=== PATIENT | male | born 1970 | race Caucasian/White ===

== ENCOUNTER 2016-07-13 11:57 | Emergency (ER) | payer OTHER ==
[2016-07-13 12:17] VITALS: O2SAT 98
--- NOTE | 2016-07-13 12:53 | EDPHY ---
H & P Stated Complaint: hematuria, testicle pain x 2 days HPI/ROS: HPI CHIEF COMPLAINT: Hematuria, testicular pain HISTORY OF PRESENT ILLNESS: This patient very pleasant 45-year-old male, denies having any significant medical history presents to the emergency room with 2-3 days of suprapubic discomfort, urinary urgency, and some discomfort when he urinates and noticed 2 small bright red blood clots in his urine today. He denies back pain, fever, vomiting, sharp stabbing pain does admit to urinary urgency and suprapubic pressure. He also tells me that his scrotum "feels full" Past Medical History: No significant medical history Past Surgical History: No significant surgical history Social History: Denies daily use drugs alcohol tobacco products, works as a junior software engineer, lives locally Family History: Noncontributory ROS REVIEW OF SYSTEMS: A comprehensive 10 point review of systems is otherwise negative aside from elements mentioned in the history of present illness. Exam Constitutional triage nursing summary reviewed, vital signs reviewed, awake/ alert. Eyes normal conjunctivae and sclera, EOMI, PERRLA. HENT normal inspection, atraumatic, moist mucus membranes, no epistaxis, neck supple/ no meningismus, no raccoon eyes. Respiratory clear to auscultation bilaterally, normal breath sounds, no respiratory distress, no wheezing. Cardiovascular rate normal, regular rhythm, no murmur, no edema, distal pulses normal. Gastrointestinal soft, non-tender, no rebound, no guarding, normal bowel sounds, no distension, no pulsatile mass. Genitourinary no CVA tenderness. Musculoskeletal no midline vertebral tenderness, full range of motion, no calf swelling, no tenderness of extremities, no meningismus, good pulses, neurovascularly intact. Skin pink, warm, & dry, no rash, skin atraumatic. Neurologic awake, alert and oriented x 3, AAOx3, moves all 4 extremities equally, motor intact, sensory intact, CN II-XII intact, normal cerebellar, normal vision, normal speech. Psychiatric normal mood/affect. Heme/Lymph/Immune no lymphadenopathy. Differential Diagnosis: Includes but is not limited to in a particular order, UTI, cystitis, kidney stone, pyelonephritis, epididymitis, orchitis, testicular torsion Medical Decision Making: plan for this patient is to have an IV established, obtain blood work, urinalysis, receive fluid bolus and had a exam. May need ultrasound of scrotum. Re-evaluation: Ultrasound of the testicular. The results of the study are negative for anything acute I discussed the results of this study with the radiologist Dr. Blankenship Ultrasound of the bladder and kidneys. The results of the study are possible hydroureter. I discussed the results of this study with the radiologist Dr. Blankenship. CT scan of the abdomen pelvis without IV contrast The results of the study are possible right 4 mm distal ureteral stone. The study was read by Dr. Blankenship. I viewed the images myself on the PACS system. 1558: Reviewed this patient's CT scan with him. It is possible he has a distal right 4 mm ureteral stone however there is no significant hydro. He has gross hematuria. He will need to follow up with Urology. I explained this that he needs to follow up with Urology make an appointment for further evaluation of hematuria. On his CT scan I do not see an at evidence of bladder tumor or renal tumor. Patient understands he needs to make a follow-up appointment it is very important. They may need to do A CT scan delayed contrast to look at his ureters. May need cystoscopy. He understands this. Source: Patient - Personal History Current Tetanus/Diphtheria Vaccine: Unsure Current Tetanus Diphtheria and Acellular Pertussis (TDAP): Unsure - Medical/Surgical History Hx Asthma: No Hx Chronic Respiratory Disease: No Hx Diabetes: No Hx Cardiac Disease: No Hx Renal Disease: No Hx Cirrhosis: No Hx Alcoholism: No Hx HIV/AIDS: No Hx Splenectomy or Spleen Trauma: No Other PMH: gout - Social History Smoking Status: Never smoked Constitutional: Initial Vital Signs Temperature (C) 36.5 C 07/13/16 12:13 Heart Rate 52 L 07/13/16 12:13 Respiratory Rate 16 07/13/16 12:13 Blood Pressure 139/98 H 07/13/16 12:13 O2 Sat (%) 98 07/13/16 12:13 O2 Delivery Mode Room Air Allergies/Adverse Reactions: Penicillins Allergy (Verified 08/22/09 20:13) Medical Decision Making - Data Points Laboratory Results: Laboratory Results 07/13/16 13:10 07/13/16 13:10 07/13/16 07/13/16 07/13/16 13:10 13:10 12:53 WBC 5.51 10^3/uL 10^3/uL (3.80-9.50) RBC 5.16 10^6/uL 10^6/uL (4.40-6.38) Hgb 15.8 g/dL g/dL (13.7-17.5) Hct 46.7 % % (40.0-51.0) MCV 90.5 fL fL (81.5-99.8) MCH 30.6 pg pg (27.9-34.1) MCHC 33.8 g/dL g/dL (32.4-36.7) RDW 12.0 % % (11.5-15.2) Plt Count 280 10^3/uL 10^3/uL (150-400) MPV 9.8 fL fL (8.7-11.7) Neut % (Auto) 48.6 % % (39.3-74.2) Lymph % (Auto) 36.7 % % (15.0-45.0) [place] % (Auto) 10.7 % % (4.5-13.0) Eos % (Auto) 3.3 % % (0.6-7.6) Baso % (Auto) 0.5 % % (0.3-1.7) Nucleat RBC Rel Count 0.0 % % (0.0-0.2) Absolute Neuts (auto) 2.68 10^3/uL 10^3/uL (1.70-6.50) Absolute Lymphs (auto) 2.02 10^3/uL 10^3/uL (1.00-3.00) Absolute Monos (auto) 0.59 10^3/uL 10^3/uL (0.30-0.80) Absolute Eos (auto) 0.18 10^3/uL 10^3/uL (0.03-0.40) Absolute Basos (auto) 0.03 10^3/uL 10^3/uL (0.02-0.10) Absolute Nucleated RBC 0.00 10^3/uL 10^3/uL (0-0.01) Immature Gran % 0.2 % % (0.0-1.1) Immature Gran # 0.01 10^3/uL 10^3/uL (0.00-0.10) Sodium 143 mEq/L mEq/L (134-144) Potassium 4.1 mEq/L mEq/L (3.5-5.2) Chloride 104 mEq/L mEq/L (97-110) Carbon Dioxide 24 mEq/l mEq/l (22-31) Anion Gap 15 mEq/L mEq/L (8-16) BUN 14 mg/dL mg/dL (7-23) Creatinine 0.9 mg/dL mg/dL (0.7-1.3) Estimated GFR > 60 Glucose 92 mg/dL mg/dL (70-100) Calcium 10.2 mg/dL mg/dL (8.5-10.4) Urine Color YELLOW Urine Appearance CLEAR Urine pH 6.0 (5.0-7.5) Ur Specific [place] 1.025 (1.002-1.030) Urine Protein NEGATIVE (NEGATIVE) Urine Ketones NEGATIVE (NEGATIVE) Urine Blood 3+ H (NEGATIVE) Urine Nitrate NEGATIVE (NEGATIVE) Urine Bilirubin NEGATIVE (NEGATIVE) Urine Urobilinogen NEGATIVE EU EU (0.2-1.0) Ur Leukocyte Esterase NEGATIVE (NEGATIVE) Urine RBC 50-182 /hpf H /hpf (0-3) Urine WBC 1-3 /hpf /hpf (0-3) Ur Epithelial Cells NONE SEEN /lpf /lpf (NONE-1+) Urine Mucus 1+ /lpf /lpf (NONE-1+) Urine Glucose NEGATIVE (NEGATIVE) Departure - Departure Disposition: Home, Routine, Self-Care Clinical Impression: Hematuria, Kidney stone on right side Condition: Good Instructions: Hematuria (ED), Kidney Stones (ED) Additional Instructions: 1. Drink lots of fluids stay well-hydrated. 2. please follow up with Urology. Please call their for an appointment. 3. It is possibly you have a kidney stone however he need further evaluation of blood in your urine. Referrals: Janine Gross MD [Primary Care Provider] - As per Instructions López Barcenas MD [Medical Doctor] - As per Instructions
[2016-07-13 12:59] LABS: COLOR YELLOW; LEUKOCYTE ESTERASE,URINE NEGATIVE (NEGATIVE); NITRITE,URINE NEGATIVE (NEGATIVE)
[2016-07-13 13:07] LABS: MUCUS 1+ /lpf (NONE-1+); RBC,URINE 50-182 /hpf (0-3)
[2016-07-13 13:19] LABS: % IMMATURE GRANULYOCYTES 0.2 % (0.0-1.1); ABSOLUTE IMMATURE GRANULOCYTES 0.01 10^3/uL (0.00-0.10); ADD DIFF? NO; ADD MORPH? NO; ADD SCAN? NO; ATYPICAL LYMPHOCYTE FLAG 20 (0-99); FRAGMENT RBC FLAG 0 (0-99); HEMATOCRIT 46.7 % (40.0-51.0); HEMOGLOBIN 15.8 g/dL (13.7-17.5); LEFT SHIFT FLG 0 (0-99); LIPEMIA HEMOLYSIS FLAG 90 (0-99); MEAN CELL HEMOGLOBIN 30.6 pg (27.9-34.1); MEAN CELL HEMOGLOBIN CONCENTR. 33.8 g/dL (32.4-36.7); MEAN CELL VOLUME 90.5 fL (81.5-99.8); MEAN PLATELET VOLUME 9.8 fL (8.7-11.7); PLATELET CLUMPS FLAG 10 (0-99); PLATELET COUNT 280 10^3/uL (150-400); RED BLOOD CELL COUNT 5.16 10^6/uL (4.40-6.38)
[2016-07-13 13:39] LABS: ANION GAP 15 mEq/L (8-16); CALCIUM 10.2 mg/dL (8.5-10.4); CARBON DIOXIDE 24 mEq/l (22-31); CHLORIDE 104 mEq/L (97-110); CREATININE 0.9 mg/dL (0.7-1.3); GLOMERULAR FILTRATION RATE > 60; GLUCOSE 92 mg/dL (70-100); POTASSIUM 4.1 mEq/L (3.5-5.2); SODIUM 143 mEq/L (134-144)
[2016-07-13 15:47] VITALS: BP 132/74; PULSE 54; RESP 18; TEMP 97.9
== END 2016-07-13 16:15 | disposition home or self-care (01) ==
DX: N20.0 Calculus of kidney (principal)

== ENCOUNTER → 2016-07-14 | Outpatient (CLI) | payer OTHER | LOC: FIMAGING 15:13 | PROVIDERS: ATTEND Specialist | DX: N20.1 Calculus of ureter (principal) ==

== ENCOUNTER → 2016-08-11 | Outpatient (CLI) | payer OTHER | LOC: CIMAGING 15:33 | PROVIDERS: ATTEND Specialist | DX: N20.1 Calculus of ureter (principal); R31.9 Hematuria, unspecified | CPT/HCPCS: 76770-PO ==

== ENCOUNTER → 2016-10-11 | Outpatient (CLI) | payer OTHER | LOC: CIMAGING 14:58 | PROVIDERS: ATTEND Specialist | DX: N20.1 Calculus of ureter (principal); R31.9 Hematuria, unspecified | CPT/HCPCS: 74000-PO; 76770-PO ==

== ENCOUNTER → 2016-11-27 | Outpatient (CLI) | payer OTHER | LOC: FIMAGING 14:16 | PROVIDERS: ATTEND Specialist | DX: N20.0 Calculus of kidney (principal) ==

== ENCOUNTER → 2017-12-26 | Outpatient (CLI) | payer OTHER | DX: R10.9 Unspecified abdominal pain (principal); R14.0 Abdominal distension (gaseous) | CPT/HCPCS: Q9967 ==